=== PATIENT | female | born 1945 | race African-American/Black ===

== ENCOUNTER 2018-10-20 22:19 | Observation (INO) ==
[2018-10-20] MEDS ORDERED: ONDANSETRON 4 MG/2 ML VIAL IV STA (22:59)
[2018-10-20] MEDS ORDERED: MORPHINE 4 MG/1 ML VIAL IV STA (22:59)
[2018-10-20] MEDS ORDERED: ASPIRIN 325 MG TABLET PO STA (22:59)
[2018-10-20] MEDS ORDERED: NITROGLYCERIN 2% OINT 1 INCH/GM PACK TOP STA (22:59)
[2018-10-20] MEDS ORDERED: ALUM/MAG/SIMETH/LIDO VISC 1:1 30 ML BOTTLE PO STA (22:59)
[2018-10-20 23:07] LABS: Basophils # 0.1 10*3/uL (0.0-0.2); Eosinophils # 0.2 10*3/uL (0.0-0.87); Eosinophils % 2.1 % (0.00-10.9); Hematocrit 41.8 VOL% (35.7-47.0); Hemoglobin 12.9 GM/DL (12.0-16.0); Immature Granulocytes % 0.6 %; Immature Granulocytes Absolute 0.06 #; Lymphocytes # 2.9 10*3/uL (1.4-4.0); Lymphocytes % 30.3 % (21.3-54.2); Mean Corpuscular HGB Conc 30.9 GM/DL (32-36); Mean Platelet Volume 11.8 FL (9.6-12.0); Platelet Count 244 T/CUMM (130-400); Red Blood Count 4.92 MC/CUMM (3.8-5.5); Red Cell Distribution Width 14.8 % (9.3-17.3); White Blood Count 9.4 T/CUMM (4-12)
[2018-10-20 23:12] LABS: INR 0.9; PT Patient Result 10.3 SECS
[2018-10-20 23:43] LABS: Alanine Aminotransferase 54 U/L (13-56); Albumin 3.7 G/DL (3.4-5.0); Alkaline Phosphatase 93 U/L (45-117); Aspartate Amino Transferase 43 U/L (0-37); Bilirubin,Total < 0.39 MG/DL (0.2-1.0); Blood Urea Nitrogen 12 MG/DL (7-18); Calcium 9.1 MG/DL (8.5-10.1); Glucose 188 MG/DL (74-106); Osmolality,Calculated 281.5 MOS/KG (273-304); Total Protein 7.7 G/DL (6.4-8.3)
[2018-10-21] MEDS ORDERED: BISACODYL 5 MG TABLET PO PRN (00:20)
[2018-10-21] MEDS ORDERED: DEXTROSE 50% 25 GM/50 ML SYRINGE IV PRN (00:20)
[2018-10-21] MEDS ORDERED: ACETAMINOPHEN 325 MG TABLET PO PRN (00:20)
[2018-10-21] MEDS ORDERED: diphenhydrAMINE CAP 25 MG CAPSULE PO PRN (00:20)
[2018-10-21] MEDS ORDERED: hydrALAZINE 20 MG/1 ML VIAL IV PRN (00:20)
[2018-10-21] MEDS ORDERED: MAGNESIUM SULF RIDER 2 GM in PREMIX 1 EACH IV PRN ×2 (00:20→16:48)
[2018-10-21] MEDS ORDERED: MAGNESIUM SULF RIDER 4 GM in PREMIX 1 EACH IV PRN (00:20)
[2018-10-21] MEDS ORDERED: POTASSIUM CHLORIDE 20 MEQ TABLET PO PRN (00:20)
[2018-10-21] MEDS ORDERED: ONDANSETRON 4 MG/2 ML VIAL IV PRN (00:20)
[2018-10-21] MEDS ORDERED: NICOTINE 21 MG/24 HR PATCH TRANSDERM PRN (00:20)
[2018-10-21] MEDS ORDERED: GLUCAGON 1 MG VIAL IM PRN (00:20)
[2018-10-21] MEDS ORDERED: MORPHINE 4 MG/1 ML VIAL IV PRN (00:20)
[2018-10-21] MEDS: LOSARTAN 50 MG TABLET PO SCH ×2 (01:53→21:50)
[2018-10-21 05:17] LABS: Alanine Aminotransferase 48 U/L (13-56); Albumin 3.1 G/DL (3.4-5.0); Alkaline Phosphatase 83 U/L (45-117); Aspartate Amino Transferase 37 U/L (0-37); Bilirubin,Total < 0.39 MG/DL (0.2-1.0); Blood Urea Nitrogen 11 MG/DL (7-18); Calcium 8.8 MG/DL (8.5-10.1); Glucose 159 MG/DL (74-106); HDL Cholesterol 44 MG/DL (40-60); Osmolality,Calculated 278.5 MOS/KG (273-304); Triglycerides 88 MG/DL (2-150); VLDL CHOLESTEROL 17.6 MG/DL
[2018-10-21] MEDS: FUROSEMIDE 40 MG TABLET PO SCH (08:46)
[2018-10-21] MEDS: METOPROLOL SUCCINATE XL 100 MG TABLET PO SCH (08:46)
[2018-10-21] MEDS: DILTIAZEM CD 120 MG CAPSULE PO SCH (08:46)
[2018-10-21] MEDS: POTASSIUM CHLORIDE 20 MEQ TABLET PO SCH (08:46)
[2018-10-21] MEDS: ASPIRIN CHEW 81 MG TABLET PO SCH (08:47)
[2018-10-21] MEDS: PANTOPRAZOLE 40 MG TABLET PO SCH (08:47)
[2018-10-21] MEDS: INSULIN REGULAR 100 UNIT/ML SUBCUT SCH ×4 (08:48→21:52)
[2018-10-21] MEDS ORDERED: amLODIPine 10 MG TABLET PO SCH (09:00)
[2018-10-21] MEDS ORDERED: POTASSIUM CHLORIDE RIDER 10 MEQ in PREMIX 1 EACH IV PRN (16:48)
[2018-10-21] MEDS: ROSUVASTATIN 10 MG TABLET PO SCH (21:50)
[2018-10-22 05:02] LABS: Basophils # 0.1 10*3/uL (0.0-0.2); Eosinophils # 0.3 10*3/uL (0.0-0.87); Eosinophils % 3.4 % (0.00-10.9); Hematocrit 37.7 VOL% (35.7-47.0); Hemoglobin 11.7 GM/DL (12.0-16.0); Immature Granulocytes % 0.8 %; Immature Granulocytes Absolute 0.06 #; Lymphocytes # 2.9 10*3/uL (1.4-4.0); Lymphocytes % 36.5 % (21.3-54.2); Mean Corpuscular Volume 85.3 FL (87-102); Mean Platelet Volume 11.1 FL (9.6-12.0); Monocytes % 10.8 % (1.7-12.7); Neutrophils % 47.5 % (38.7-73.9); Platelet Count 237 T/CUMM (130-400); Red Blood Count 4.42 MC/CUMM (3.8-5.5); Red Cell Distribution Width 14.8 % (9.3-17.3)
[2018-10-22 05:24] LABS: Osmolality,Calculated 283.4 MOS/KG (273-304)
[2018-10-22] MEDS ORDERED: SODIUM CHLORIDE 0.45% 1,000 ML IV SCH (07:00)
[2018-10-22] MEDS: INSULIN REGULAR 100 UNIT/ML SUBCUT SCH ×4 (10:33→21:31)
[2018-10-22] MEDS: PANTOPRAZOLE 40 MG TABLET PO SCH (10:34)
[2018-10-22] MEDS: DILTIAZEM CD 120 MG CAPSULE PO SCH (10:34)
[2018-10-22] MEDS: POTASSIUM CHLORIDE 20 MEQ TABLET PO SCH (10:34)
[2018-10-22] MEDS: FUROSEMIDE 40 MG TABLET PO SCH (10:34)
[2018-10-22] MEDS: ASPIRIN CHEW 81 MG TABLET PO SCH (10:34)
[2018-10-22] MEDS: METOPROLOL SUCCINATE XL 100 MG TABLET PO SCH (10:35)
[2018-10-22] MEDS ORDERED: diphenhydrAMINE CAP 25 MG CAPSULE PO ONE (13:00)
[2018-10-22] MEDS ORDERED: DIAZEPAM 5 MG TABLET PO ONE (13:00)
[2018-10-22] MEDS ORDERED: HEPARIN/NACL 0.9% 2 UNITS/ML 1,000 ML IV ONE (13:41)
[2018-10-22] MEDS ORDERED: LIDOCAINE 1%/EPI INJ 20 ML VIAL ONE (14:44)
[2018-10-22] MEDS ORDERED: MIDAZOLAM 2 MG/2 ML VIAL ONE (16:09)
[2018-10-22] MEDS ORDERED: fentaNYL 100 MCG/2 ML VIAL ONE (16:09)
[2018-10-22] MEDS: LOSARTAN 50 MG TABLET PO SCH (21:31)
[2018-10-22] MEDS: ROSUVASTATIN 10 MG TABLET PO SCH (21:31)
[2018-10-23 04:57] LABS: Basophils # 0.1 10*3/uL (0.0-0.2); Basophils % 0.7 % (0.0-0.8); Eosinophils # 0.2 10*3/uL (0.0-0.87); Eosinophils % 2.6 % (0.00-10.9); Hematocrit 36.7 VOL% (35.7-47.0); Hemoglobin 11.8 GM/DL (12.0-16.0); Immature Granulocytes % 0.6 %; Immature Granulocytes Absolute 0.05 #; Lymphocytes # 2.7 10*3/uL (1.4-4.0); Lymphocytes % 31.7 % (21.3-54.2); Mean Corpuscular HGB Conc 32.2 GM/DL (32-36); Mean Corpuscular Volume 83.8 FL (87-102); Mean Platelet Volume 11.4 FL (9.6-12.0); Monocytes % 10.7 % (1.7-12.7); Neutrophils % 53.7 % (38.7-73.9); Platelet Count 226 T/CUMM (130-400); Red Blood Count 4.38 MC/CUMM (3.8-5.5); Red Cell Distribution Width 14.7 % (9.3-17.3); White Blood Count 8.4 T/CUMM (4-12)
[2018-10-23 05:29] LABS: Calcium 8.6 MG/DL (8.5-10.1); Osmolality,Calculated 278.7 MOS/KG (273-304)
[2018-10-23 07:57] VITALS: BP 133/76
[2018-10-23] MEDS ORDERED: ISOSORBIDE MONONITRATE 60 MG TABLET PO SCH (09:00)
[2018-10-23] MEDS: DILTIAZEM CD 120 MG CAPSULE PO SCH (09:47)
[2018-10-23] MEDS: METOPROLOL SUCCINATE XL 100 MG TABLET PO SCH (09:47)
[2018-10-23] MEDS: INSULIN REGULAR 100 UNIT/ML SUBCUT SCH (09:48)
[2018-10-23] MEDS: PANTOPRAZOLE 40 MG TABLET PO SCH (09:48)
[2018-10-23] MEDS: ASPIRIN CHEW 81 MG TABLET PO SCH (09:48)
[2018-10-23] MEDS: FUROSEMIDE 40 MG TABLET PO SCH (09:48)
[2018-10-23] MEDS: POTASSIUM CHLORIDE 20 MEQ TABLET PO SCH (09:48)
== END 2018-10-23 11:03 | disposition home or self-care (01) ==
LOC: EDBD → EDUNIT# → N.ED 22:19 → N.EDINP 22:19 → SUPCPDRO 10-21 00:20 → N.4E 10-21 00:46
PROVIDERS: ADMIT Internal Medicine; ATTEND Internal Medicine
PROC: CLCCHCL (ICD-10-PCS; 2018-10-22 16:15)

== ENCOUNTER 2020-02-22 21:32 | Observation (INO) ==
[2020-02-22] MEDS ORDERED: ASPIRIN 325 MG TABLET PO STA ×2 (21:57)
[2020-02-22] MEDS ORDERED: ONDANSETRON 4 MG/2 ML VIAL IV STA (21:57)
[2020-02-22] MEDS ORDERED: MORPHINE 4 MG/1 ML VIAL IV STA (21:57)
[2020-02-22] MEDS ORDERED: NITROGLYCERIN 2% OINT 1 INCH/GM PACK TOP STA (21:57)
[2020-02-22] MEDS ORDERED: FUROSEMIDE 40 MG/4 ML VIAL IV STA (21:57)
[2020-02-22 22:13] LABS: Basophils # 0.1 10*3/uL (0.0-0.2); Basophils % 0.6 % (0.0-0.8); Eosinophils # 0.1 10*3/uL (0.0-0.87); Eosinophils % 1.1 % (0.00-10.9); Hemoglobin 11.1 GM/DL (12.0-16.0); Immature Granulocytes % 0.5 %; Immature Granulocytes Absolute 0.05 #; Lymphocytes # 2.7 10*3/uL (1.4-4.0); Lymphocytes % 24.7 % (21.3-54.2); Mean Corpuscular HGB Conc 32.6 GM/DL (32-36); Mean Corpuscular Volume 78.5 FL (87-102); Mean Platelet Volume 11.5 FL (9.6-12.0); Monocytes % 9.3 % (1.7-12.7); Neutrophils % 63.8 % (38.7-73.9); Platelet Count 270 T/CUMM (130-400); Red Blood Count 4.33 MC/CUMM (3.8-5.5); Red Cell Distribution Width 13.4 % (9.3-17.3)
[2020-02-22 22:21] LABS: INR 1.1; PT Patient Result 11.5 SECS (9.8-11.9)
[2020-02-22] MEDS ORDERED: MAGNESIUM SULF RIDER 2 GM in PREMIX 1 EACH IV STA (22:23)
[2020-02-22 22:32] LABS: Alanine Aminotransferase 15 U/L (13-56); Albumin 2.8 G/DL (3.4-5.0); Alkaline Phosphatase 112 U/L (45-117); Aspartate Amino Transferase 15 U/L (0-37); Bilirubin,Total < 0.39 MG/DL (0.2-1.0); Blood Urea Nitrogen 6 MG/DL (7-18); Calcium 8.7 MG/DL (8.5-10.1); Estimated Glom Filtration Rate 75 ML/MIN; Glucose 306 MG/DL (74-106); Total Protein 7.3 G/DL (6.4-8.3)
[2020-02-22] MEDS ORDERED: guaiFENesin/DM ER 600-30 MG TABLET PO PRN (23:18)
[2020-02-22] MEDS ORDERED: NICOTINE 21 MG/24 HR PATCH TRANSDERM PRN (23:18)
[2020-02-22] MEDS ORDERED: ONDANSETRON 4 MG/2 ML VIAL IV PRN (23:18)
[2020-02-22] MEDS ORDERED: MORPHINE 4 MG/1 ML VIAL IV PRN (23:18)
[2020-02-22] MEDS ORDERED: ZALEPLON 5 MG CAPSULE PO PRN (23:18)
[2020-02-22] MEDS ORDERED: ACETAMINOPHEN 325 MG TABLET PO PRN (23:18)
[2020-02-22] MEDS ORDERED: PROMETHAZINE 25 MG TABLET PO PRN (23:18)
[2020-02-22] MEDS ORDERED: DEXTROSE 50% 25 GM/50 ML VIAL IV PRN ×2 (23:18)
[2020-02-22] MEDS ORDERED: GLUCAGON 1 MG VIAL IM PRN ×2 (23:18)
[2020-02-22] MEDS ORDERED: hydrALAZINE 20 MG/1 ML VIAL IV PRN (23:18)
[2020-02-22] MEDS ORDERED: diphenhydrAMINE CAP 25 MG CAPSULE PO PRN (23:18)
[2020-02-22] MEDS ORDERED: AMITRIPTYLINE 10 MG TABLET PO PRN (23:24)
[2020-02-22] MEDS ORDERED: NITROGLYCERIN SL 0.4 MG TABLET SL PRN (23:25)
[2020-02-22] MEDS ORDERED: MAGNESIUM SULF RIDER 2 GM in PREMIX 1 EACH IV PRN (23:26)
[2020-02-23 05:51] LABS: Basophils # 0.1 10*3/uL (0.0-0.2); Basophils % 0.6 % (0.0-0.8); Eosinophils # 0.2 10*3/uL (0.0-0.87); Eosinophils % 1.6 % (0.00-10.9); Hematocrit 33.1 VOL% (35.7-47.0); Hemoglobin 10.7 GM/DL (12.0-16.0); Immature Granulocytes % 0.3 %; Immature Granulocytes Absolute 0.03 #; Lymphocytes # 2.3 10*3/uL (1.4-4.0); Lymphocytes % 24.1 % (21.3-54.2); Mean Corpuscular HGB Conc 32.3 GM/DL (32-36); Mean Corpuscular Volume 78.1 FL (87-102); Mean Platelet Volume 11.9 FL (9.6-12.0); Monocytes % 10.6 % (1.7-12.7); Neutrophils % 62.8 % (38.7-73.9); Platelet Count 247 T/CUMM (130-400); Red Blood Count 4.24 MC/CUMM (3.8-5.5); Red Cell Distribution Width 13.5 % (9.3-17.3); White Blood Count 9.6 T/CUMM (4-12)
[2020-02-23] MEDS ORDERED: ENOXAPARIN 40 MG/0.4 ML SYRINGE SUBCUT SCH (08:00)
[2020-02-23] MEDS: DOCUSATE SODIUM 100 MG CAPSULE PO SCH ×2 (08:23→21:23)
[2020-02-23] MEDS: INSULIN LISPRO 100 UNIT/ML SUBCUT SCH ×4 (08:23→21:23)
[2020-02-23] MEDS ORDERED: PANTOPRAZOLE 40 MG TABLET PO SCH (09:00)
[2020-02-23] MEDS ORDERED: ISOSORBIDE MONONITRATE 60 MG TABLET PO SCH (09:00)
[2020-02-23] MEDS ORDERED: ASPIRIN CHEW 81 MG TABLET PO SCH (09:00)
[2020-02-23] MEDS ORDERED: hydrALAZINE 10 MG TABLET PO SCH (09:00)
[2020-02-23] MEDS ORDERED: METOPROLOL SUCCINATE XL 100 MG TABLET PO SCH (09:00)
[2020-02-23] MEDS ORDERED: ESCITALOPRAM 10 MG TABLET PO SCH (09:00)
[2020-02-23] MEDS ORDERED: DILTIAZEM CD 120 MG CAPSULE PO SCH (09:00)
[2020-02-23] MEDS ORDERED: GABAPENTIN 300 MG CAPSULE PO SCH ×2 (09:00→21:00)
[2020-02-23] MEDS: KETOROLAC 30 MG/1 ML VIAL IV SCH ×2 (10:29→16:19)
[2020-02-23 11:34] LABS: Calcium 8.5 MG/DL (8.5-10.1); Osmolality,Calculated 278.4 MOS/KG (273-304)
[2020-02-23] MEDS ORDERED: POTASSIUM CHLORIDE 20 MEQ TABLET PO ONE (12:15)
[2020-02-23] MEDS: hydrALAZINE 10 MG TABLET PO SCH ×2 (15:47→21:23)
[2020-02-23 18:48] VITALS: BP 101/58
[2020-02-23] MEDS ORDERED: ROSUVASTATIN 10 MG TABLET PO SCH (21:00)
== END 2020-02-23 21:53 | disposition home health service (06) ==
LOC: N.EDINP 21:32 → N.ED 21:32 → N.EDINP 02-23 00:52 → N.TELEN 02-23 01:15 → N.TELES 02-23 01:15
PROVIDERS: ADMIT Internal Medicine; ATTEND Internal Medicine